=== PATIENT | female | born 1970 | race Caucasian/White ===

== ENCOUNTER 2017-08-08 16:47 | Emergency (ER) | payer BC ==
[~2017-08-08] VITALS: Ht 152.4 cm; Wt 48.0 kg
[2017-08-08 16:52] VITALS: BP 112/68; PULSE 90; RESP 18; TEMP 99.7; O2SAT 97
[2017-08-08 17:37] LABS: BILIRUBIN, URINE NEG (NEG); GLUCOSE,URINE NEG (NEG); KETONE, URINE 80 OR GREATER mg/dL (NEG); NITRITE,URINE NEG (NEG); URINE LEUKOCYTE ESTERASE NEG (NEG)
[2017-08-08 17:40] LABS: BLOOD, URINE TRACE (NEG)
[2017-08-08 17:41] LABS: URINE COLOR YELLOW (YELLW/STRAW)
[2017-08-08 17:42] LABS: RBC, URINE 0-3 /hpf (0-3); WBC, URINE 0-2 /hpf (0-5)
[2017-08-08 17:44] LABS: AMORPHOUS SEDIMENT, URINE MOD; TRANSITIONAL EPI CELLS, URINE 0-5 /hpf
[2017-08-08] MEDS ORDERED: SYNT112T PO (17:49)
[2017-08-08] MEDS ORDERED: SODIUM CHLOR 0.9% 1000 ML INJ 1,000 ML IV SCH (18:21)
--- NOTE | 2017-08-08 18:29 | PD ---
HPI Chief Complaint: Abdominal Pain Time Seen by Provider: 18:13 Travel History International Travel<30 days: No Contact w/Intl Traveler<30days: No Traveled to known affect area: No History of Present Illness HPI 46-year-old female complains of abdominal pain with nausea. Patient states that the symptoms started this morning. Patient states that she has severe epigastric abdominal pain this morning . Patient states that the pain moving down to lower abdomen pelvic area. Patient states that the pain radiates to the hips area bilaterally. Patient states that she has severe nausea but no vomiting or diarrhea. Patient denies any dysuria frequency. Patient's on control pills and has frequent vaginal spotting. Patient states that she started having vaginal spotting yesterday and having brownish vaginal discharge today. Patient denies any fever or chills. Patient denies any back pain. Patient on Augmentin day #4 for productive cough. Patient denies any headache. Patient denies any chest pain or shortness of breath. Patient has history hypothyroidism on levothyroxine. PFSH Past Medical History Diminished Hearing: No GERD: Yes Thyroid Disease: Yes (hypothyroid) Tetanus Vaccination: < 5 Years Influenza Vaccination: Yes ?: Not LMP: DOESNT GET PER PT. Social History Alcohol Use: Yes (occ) Tobacco Use: No Substance Use: No Allergies-Medications (Allergen,Severity, Reaction): Coded Allergies: No Known Allergies (Unverified , 08/08/17) Reported Meds & Prescriptions Reported Meds & Active Scripts Active Bentyl (Dicyclomine HCl) 10 Mg Cap 10 Mg PO TID Carafate (Sucralfate) 1 Gram Tab 1 Gm PO QID On empty stomach Protonix (Pantoprazole Sodium) 40 Mg Tab 40 Mg PO DAILY Ultram (Tramadol HCl) 50 Mg Tab 50 Mg PO Q6H PRN Reported Synthroid (Levothyroxine Sodium) 112 Mcg Tab 112 Mcg PO DAILY Review of Systems General / Constitutional: No: Fever Eyes: No: Visual changes HENT: No: Headaches Cardiovascular: No: Chest Pain or Discomfort Respiratory: No: Shortness of Breath Gastrointestinal: Positive: Nausea, Abdominal Pain Genitourinary: No: Dysuria Musculoskeletal: No: Pain Skin: No Rash Neurologic: No: Weakness Psychiatric: No: Depression Endocrine: No: Polydipsia Hematologic/Lymphatic: No: Easy Bruising Physical Exam Narrative GENERAL: Well-nourished, well-developed patient. SKIN: Focused skin assessment warm/dry. HEAD: Normocephalic. EYES: No scleral icterus. No injection or drainage. NECK: Supple, trachea midline. No JVD or lymphadenopathy. CARDIOVASCULAR: Regular rate and rhythm without murmurs, gallops, or rubs. RESPIRATORY: Breath sounds equal bilaterally. No accessory muscle use. GASTROINTESTINAL: Abdomen soft, nondistended. Patient has moderate tenderness to palpation epigastric area. Mild tenderness in the lower abdomen. No rebound tenderness. No mass. MUSCULOSKELETAL: No cyanosis, or edema. BACK: Nontender without obvious deformity. No CVA tenderness. Neurologic exam normal. Data Data Last Documented VS Vital Signs Date Time Temp Pulse Resp B/P (MAP) Pulse Ox O2 Delivery O2 Flow Rate FiO2 08/08/17 19:32 18 08/08/17 19:01 83 121/76 (91) 83 Room Air 08/08/17 16:52 99.7 Orders Orders Urinalysis - C+S If Indicated (08/08/17 17:12) Complete Blood Count With Diff (08/08/17 18:21) Comprehensive Metabolic Panel (08/08/17 18:21) Lipase (08/08/17 18:21) Ct Abd/Pel W Iv Contrast(Rout) (08/08/17 18:21) Iv Access Insert/Monitor (08/08/17 18:21) Ecg Monitoring (08/08/17 18:21) Oximetry (08/08/17 18:21) Ondansetron Inj (Zofran Inj) (08/08/17 18:30) Sodium Chlor 0.9% 1000 Ml Inj (Ns 1000 M (08/08/17 18:21) Sodium Chloride 0.9% Flush (Ns Flush) (08/08/17 18:30) Famotidine Inj (Pepcid Inj) (08/08/17 18:30) Ed Urine Pregnancytest Poc (08/08/17 18:21) Morphine Inj (Morphine Inj) (08/08/17 18:30) Ondansetron Inj (Zofran Inj) (08/08/17 18:30) Al-Mag Hy-Si 40-40-4 Mg/Ml Liq (Mag-Al P (08/08/17 18:45) Curwj-Yxedqw-Firmny-Pb Liq ( Liq (08/08/17 18:45) Iohexol 350 Inj (Omnipaque 350 Inj) (08/08/17 19:40) Orphenadrine Inj (Norflex Inj) (08/08/17 20:30) Gc And Chlamydia Pcr (08/08/17 20:27) Ed Discharge Order (08/08/17 20:32) Labs Laboratory Tests Test 08/08/17 17:00 08/08/17 18:59 Urine Collection Type CLEAN CATCH Urine Color YELLOW Urine Turbidity SLIGHT Urine pH 8.0 Urine Specific [place] 1.020 Urine Protein TRACE mg/dL Urine Glucose (UA) NEG mg/dL Urine Ketones 80 OR GREATER mg/dL Urine Occult Blood TRACE Urine Nitrite NEG Urine Bilirubin NEG Urine Leukocyte Esterase NEG Urine RBC 0-3 /hpf Urine WBC 0-2 /hpf Urine Squamous Epithelial Cells 6-8 /hpf Urine Transitional Epithelial Cells 0-5 /hpf Urine Amorphous Sediment MOD Microscopic Urinalysis Comment CULT NOT INDICATED Urine Collection Time 1700 White Blood Count 18.4 TH/MM3 Red Blood Count 4.47 MIL/MM3 Hemoglobin 13.6 GM/DL Hematocrit 41.8 % Mean Corpuscular Volume 93.6 FL Mean Corpuscular Hemoglobin 30.5 PG Mean Corpuscular Hemoglobin Concent 32.6 % Red Cell Distribution Width 11.9 % Platelet Count 239 TH/MM3 Mean Platelet Volume 8.7 FL Neutrophils (%) (Auto) 87.6 % Lymphocytes (%) (Auto) 5.1 % Monocytes (%) (Auto) 6.7 % Eosinophils (%) (Auto) 0.1 % Basophils (%) (Auto) 0.5 % Neutrophils # (Auto) 16.2 TH/MM3 Lymphocytes # (Auto) 0.9 TH/MM3 Monocytes # (Auto) 1.2 TH/MM3 Eosinophils # (Auto) 0.0 TH/MM3 Basophils # (Auto) 0.1 TH/MM3 CBC Comment DIFF FINAL Differential Comment Blood Urea Nitrogen 9 MG/DL Creatinine 0.77 MG/DL Random Glucose 104 MG/DL Total Protein 7.4 GM/DL Albumin 3.6 GM/DL Calcium Level 8.6 MG/DL Alkaline Phosphatase 53 U/L Aspartate Amino Transf (AST/SGOT) 12 U/L Alanine Aminotransferase (ALT/SGPT) 16 U/L Total Bilirubin 0.8 MG/DL Sodium Level 133 MEQ/L Potassium Level 4.1 MEQ/L Chloride Level 100 MEQ/L Carbon Dioxide Level 26.0 MEQ/L Anion Gap 7 MEQ/L Estimat Glomerular Filtration Rate 81 ML/MIN Lipase 80 U/L [facility] Medical Decision Making Medical Screen Exam Complete: Yes Emergency Medical Condition: Yes Interpretation(s) Last Impressions Abdomen/Pelvis CT 08/08/17 1821 Signed Impressions: Service Date/Time: Tuesday, August 08, 2017 19:36 - CONCLUSION: 1. No acute abnormality. 2. 2.2 cm right adnexal cyst likely ovarian in nature. Caleb Clifton Jr., MD 2016 p.m. CBC WBC 18.4. 87 neutrophils. Sodium 133. UA negative. Urine test negative. Differential Diagnosis Differential diagnoses include gastritis, PUD, hepatitis, pancreatitis, cholecystitis, colitis, UTI, pyelonephritis, nephrolithiasis. Narrative Course 46-year-old female with abdominal pain and nausea. Pepcid 20 mg IV given. Morphine 2 mg IV. Zofran 4 mg IV. Norflex 60 mg IM. Maalox 30 cc p.o. 10 cc p.o. 2030 p.m. Reexamination epigastric pain almost resolved completely. Patient has mild low patient abdominal pain now. Patient mostly complained of bilateral aching hip pain now. Patient stated that she used to have aching hip pain when she had a flu in the past. No obvious injury deformity of the hip joint at this point. Patient has elevated white count with unknown etiology. Most likely demargination from pain. GC chlamydia PCR pending. Diagnosis Primary Impression: Gastritis Qualified Codes: K29.00 - Acute gastritis without bleeding Additional Impression: Abdominal pain Qualified Codes: R10.30 - Lower abdominal pain, unspecified Patient Instructions: General Instructions Additional Instructions: Take medication as directed. Follow-up with personal physician. Return if persistent problem or worse. Med/Other Pt SpecificInfo: Prescription(s) given Scripts Dicyclomine (Bentyl) 10 Mg Cap 10 MG PO TID for Bowel Management, #21 CAP 0 Refills Prov: Wiliam Donis MD 08/08/17 Sucralfate (Carafate) 1 Gram Tab 1 GM PO QID for Ulcer Prevention, #120 TAB 0 Refills On empty stomach Prov: Wiliam Donis MD 08/08/17 Pantoprazole (Protonix) 40 Mg Tab 40 MG PO DAILY for Reflux, #30 TAB 0 Refills Prov: Wiliam Donis MD 08/08/17 Tramadol (Ultram) 50 Mg Tab 50 MG PO Q6H Y for PAIN, #20 TAB 0 Refills Prov: Wiliam Donis MD 08/08/17 Disposition: 01 DISCHARGE HOME Condition: Stable Wiliam Donis MD Aug 08, 2017 18:29
[2017-08-08] MEDS ORDERED: FAMOTIDINE 20 MG/2 ML VIAL IV PUSH ONE (18:30)
[2017-08-08] MEDS ORDERED: SODIUM CHLORIDE 0.9% FLUSH 10 ML FLUSH IV FLUSH PRN (18:30)
[2017-08-08] MEDS ORDERED: MORPHINE SULFATE 2 MG/ML INJ IV PUSH ONE (18:30)
[2017-08-08] MEDS ORDERED: ONDANSETRON HCL 4 MG/2 ML VIAL IV PUSH ONE (18:30)
[2017-08-08] MEDS ORDERED: ONDANSETRON HCL 4 MG/2 ML VIAL IVP ONE (18:30)
[2017-08-08] MEDS ORDERED: ATROPINE/SCOPOLAM/HYOSCYAM/PB ELIXIR 10 ML CUP PO ONE (18:45)
[2017-08-08] MEDS ORDERED: ALUMINUM/MAGNESIUM/SIMETH 30 ML CUP PO ONE (18:45)
[2017-08-08 19:00] VITALS: PULSE 83; RESP 18; O2SAT 99
[2017-08-08 19:01] VITALS: BP 121/76; PULSE 83; RESP 18; O2SAT 83
[2017-08-08 19:06] LABS: AUTOMATED NEUTROPHIL # 16.2 TH/MM3 (1.8-7.7); BASOPHIL # 0.1 TH/MM3 (0-0.2); BASOPHIL % 0.5 % (0.0-2.0); EOSINOPHIL % 0.1 % (0.0-4.0); HEMATOCRIT 41.8 % (35.0-46.0); HEMOGLOBIN 13.6 GM/DL (11.6-15.3); LYMPH % 5.1 % (9.0-44.0); LYMPHOCYTE # 0.9 TH/MM3 (1.0-4.8); MEAN CELL VOLUME 93.6 FL (80.0-100.0); MEAN CORPUSCULAR HEMOGLOBIN 30.5 PG (27.0-34.0); MEAN CORPUSCULAR HGB CONC 32.6 % (32.0-36.0); MEAN PLATELET VOLUME 8.7 FL (7.0-11.0); MONO % 6.7 % (0.0-8.0); MONOCYTE # 1.2 TH/MM3 (0-0.9); NEUT % 87.6 % (16.0-70.0); PLATELET COUNT 239 TH/MM3 (150-450); RED BLOOD COUNT 4.47 MIL/MM3 (4.00-5.30); RED CELL DISTRIBUTION WIDTH 11.9 % (11.6-17.2); WHITE BLOOD COUNT 18.4 TH/MM3 (4.0-11.0)
[2017-08-08 19:10] LABS: CHLORIDE 100 MEQ/L (98-107); SODIUM (NA) 133 MEQ/L (136-145)
[2017-08-08 19:13] LABS: CALCIUM 8.6 MG/DL (8.5-10.1)
[2017-08-08 19:14] LABS: ALBUMIN 3.6 GM/DL (3.4-5.0); BLOOD UREA NITROGEN 9 MG/DL (7-18); GLUCOSE,RANDOM 104 MG/DL (74-106); LIPASE 80 U/L (73-393)
[2017-08-08 19:16] LABS: ALT (GPT) 16 U/L (10-53)
[2017-08-08 19:17] LABS: AST (GOT) 12 U/L (15-37); CREATININE 0.77 MG/DL (0.50-1.00); GLOMERULAR FILTRATION RATE 81 ML/MIN (>89)
[2017-08-08 19:18] LABS: TOTAL BILIRUBIN ADULT 0.8 MG/DL (0.2-1.0); TOTAL PROTEIN 7.4 GM/DL (6.4-8.2)
[2017-08-08 19:19] LABS: ALKALINE PHOSPHATASE 53 U/L (45-117)
[2017-08-08] MEDS ORDERED: IOHEXOL 350 MG/ML 10 ML VIAL (for RAD DIAG) IVCONTRAST ONE (19:40)
[2017-08-08 20:00] VITALS: BP 123/74; PULSE 88; RESP 18; O2SAT 97
--- NOTE | 2017-08-08 20:00 | RADRPT ---
EXAM DATE/TIME: 08/08/2017 19:36 [place] COMPARISON: No previous studies available for comparison. INDICATIONS : Abdominal pain with nausea. IV CONTRAST: 100 cc Omnipaque 350 (iohexol) IV ORAL CONTRAST: No oral contrast ingested. RADIATION DOSE: 4.59 CTDIvol (mGy) MEDICAL HISTORY : None SURGICAL HISTORY : None. ENCOUNTER: Initial ACUITY: 1 day PAIN SCALE: 9/10 LOCATION: abdomen TECHNIQUE: Volumetric scanning of the abdomen and pelvis was performed. Using automated exposure control and ad justment of the mA and/or kV according to patient size, radiation dose was kept as low as reasonably achievable to obtain optimal diagnostic quality images. DICOM format image data is available electro nically for review and comparison. FINDINGS: LOWER LUNGS: The visualized lower lungs are clear. LIVER: Homogeneous density without lesion. Some periportal edema noted. There is no dilation of the biliary tree. No calcified gallstones. SPLEEN: Normal size without lesion. PANCREAS: Within normal limits. KIDNEYS: Normal in size and shape. There is no mass, stone or hydronephrosis. ADRENAL GLANDS: Within normal limits. VASCULAR: There is no aortic aneurysm. BOWEL/MESENTERY: The stomach, small bowel, and colon demonstrate no acute abnormality. There is no free intraperitone al air or fluid. ABDOMINAL WALL: Within normal limits. RETROPERITONEUM: There is no lymphadenopathy. BLADDER: No wall thickening or mass. REPRODUCTIVE: There is a 2.2 cm cyst within the right adnexa. No free fluid within the pelvis. Uterus is anteverted . INGUINAL: There is no lymphadenopathy or hernia. MUSCULOSKELETAL: Within normal limits for patient age. CONCLUSION: 1. No acute abnormality. 2. 2.2 cm right adnexal cyst likely ovarian in nature. Caleb Clifton Jr., MD on August 08, 2017 at 19:56 Board Certified Radiologist. This report was verified electronically.
[2017-08-08] MEDS ORDERED: DICY10 PO (20:30)
[2017-08-08] MEDS ORDERED: ORPHENADRINE INJ 60 MG/2 ML AMP IM ONE (20:30)
[2017-08-08] MEDS ORDERED: CARA1TAB6 PO (20:30)
[2017-08-08] MEDS ORDERED: PROT40TA PO (20:30)
[2017-08-08] MEDS ORDERED: TRAM50 PO (20:30)
[2017-08-08 20:53] VITALS: BP 112/74
== END 2017-08-08 21:19 | disposition home or self-care (01) ==
LOC: PHED 16:47
DX: K29.00 Acute gastritis without bleeding (principal); R10.30 Lower abdominal pain, unspecified; M25.552 Pain in left hip; M25.551 Pain in right hip; R11.0 Nausea; E03.9 Hypothyroidism, unspecified; K21.9 Gastro-esophageal reflux disease without esophagitis
CPT/HCPCS: 74177; 80053; 81001; 83690; 84703; 85025; 87491; 87591; 96361; 96372; 96374; 96375; 99284; J2270; J2360; J2405; J7030; Q9967